=== PATIENT | male | born 1980 | race Caucasian/White ===

== ENCOUNTER 2022-04-07 13:41 | Emergency (ER) | payer SELFPAY ==
[2022-04-07] MEDS ORDERED: Ketorolac Tromethamine 30 MG/ML VIAL ONE (14:45)
[2022-04-07] MEDS ORDERED: Morphine 4 MG/ML VIAL ONE ×2 (14:45→16:33)
[2022-04-07] MEDS ORDERED: Bupivacaine PF 0.5% 30 ML VIAL ONE (16:09)
[2022-04-07] MEDS ORDERED: Lidocaine 1% w/Epinephrine 1:100K 20 ML VIAL ONE (16:09)
[2022-04-07] MEDS ORDERED: Levofloxacin 500 mg/D5W 100 ml Premix Bag ONE (16:34)
[2022-04-07] MEDS ORDERED: fentaNYL Citrate/PF 100 MCG/2 ML SYRINGE ONE (17:01)
[2022-04-07] MEDS ORDERED: Rocuronium Bromide 10 MG/ML (10ML VIAL) ONE (17:40)
[2022-04-07] MEDS ORDERED: PROPOFOL 200 MG/20 ML VIAL ONE (17:40)
[2022-04-07] MEDS ORDERED: Succinylcholine 200 MG/10 ml SYRINGE FS ONE (17:40)
[2022-04-07] MEDS ORDERED: Ondansetron PF 4 MG/2 ML Vial ONE (17:40)
[2022-04-07] MEDS ORDERED: Lidocaine 1% PF 5 ML VIAL ONE (17:40)
[2022-04-07] MEDS ORDERED: Dexamethasone 20 MG/5 ML VIAL ONE (17:40)
[2022-04-07] MEDS ORDERED: Labetalol HCl 100 MG/20 ML VIAL ONE (17:40)
[2022-04-07] MEDS ORDERED: Glycopyrrolate 0.2 MG/ML 5 ML SYRINGE ONE (17:40)
[2022-04-07] MEDS ORDERED: Phenylephrine 10 MG/ML VIAL ONE (17:40)
[2022-04-07 17:54] LABS: SARS-CoV-2 NAA Rapid Test Not Detected (NotDetected)
== END 2022-04-07 19:11 | disposition admitted as inpatient to this hospital (09) ==
LOC: ERS 13:41
PROC: 0FT44ZZ Resection of Gallbladder, Percutaneous Endoscopic Approach (ICD-10-PCS; principal; 2022-04-07)
DX: K80.12 Calculus of gallbladder with acute and chronic cholecystitis without obstruction (principal); K82.1 Hydrops of gallbladder; K82.8 Other specified diseases of gallbladder; K82.A1 Gangrene of gallbladder in cholecystitis; K76.0 Fatty (change of) liver, not elsewhere classified; Z88.5 Allergy status to narcotic agent; Z20.822 Contact with and (suspected) exposure to COVID-19
CPT/HCPCS: 76705; 88304; 96374; 96375; C1713; J1100; J1885; J1956; J2270; J2370; J2405; J2704; J2710; S0020; U0002